=== PATIENT | male | born 1985 | race Caucasian/White ===

== ENCOUNTER 2017-07-10 10:16 | Emergency (ER) ==
[2017-07-10 10:23] VITALS: BP 125/79; TEMP 98.1; BMI 25.9
[2017-07-10] MEDS ORDERED: NORCO 10-325 PO STA (10:38)
[2017-07-10 10:59] LABS: BASOPHILS % (AUTO) 0.4 % (0.0-3.0); EOSINOPHILS # (AUTO) 0.2 K/ul (0.0-0.7); EOSINOPHILS % (AUTO) 1.4 % (0.0-7.0); HEMATOCRIT 44.2 % (42.0-52.0); HEMOGLOBIN 15.7 g/dl (14.0-18.0); IMMATURE GRANULOCYTE % (AUTO) 0.6 % (0.0-5.0); LYMPHOCYTES # (AUTO) 2.2 K/uL (0.60-3.4); LYMPHOCYTES % (AUTO) 20.1 (10.0-50.0); MEAN CORPUSCULAR HEMOGLOBIN 32.4 pg (27.0-31.0); MEAN CORPUSCULAR HGB CONC 35.5 (31.8-35.4); MEAN CORPUSCULAR VOLUME 91.1 fl (80.0-94.0); MONOCYTES # (AUTO) 0.7 K/uL (0.4-2.0); MONOCYTES % (AUTO) 6.8 (0-10); NEUTROPHILS # (AUTO) 7.7 K/ul (2.0-6.9); NEUTROPHILS % (AUTO) 70.7; PLATELET COUNT 389 10^3/uL (140-440); RED BLOOD COUNT 4.85 10^6/ul (4.70-6.10); WHITE BLOOD COUNT 10.89 K/ul (4.2-10.2)
--- NOTE | 2017-07-10 11:15 | CT ---
EXAM: CT thoracic spine without contrast. HISTORY: Back pain, and right chest/rib pain following trauma great difficulty breathing. COMPARISON: None available. TECHNIQUE: Multiple axial images of the thoracic spine were obtained without intravenous contrast. Images were reformatted in the sagittal and coronal planes. FINDINGS: The normal curvature and alignment are maintained. Vertebral body and intervertebral disc heights are normal. No fracture or subluxation is seen. No significant central canal stenosis iden tified. Adjacent soft tissues are unremarkable. IMPRESSION: No acute abnormality of the thoracic spine.
--- NOTE | 2017-07-10 11:15 | CT ---
EXAM: CT scan thorax without contrast HISTORY: Trauma COMPARISON: None. FINDINGS: Contiguous axial images obtained through the thorax without contrast utilizing 5-mm collim ation. Sagittal and coronal reconstructions were imaged reviewed.. The thoracic inlet is unremarkab le. There is no evidence of mediastinal lymphadenopathy. The heart is normal in size without perica rdial effusion. There is minimal bibasilar atelectasis. There is a displaced fracture involving the lateral aspect of the right third rib. IMPRESSION: Displaced fracture right third rib. Bibasilar atelectasis.
--- NOTE | 2017-07-10 11:26 | ED.PDOC ---
General ED Provider: Dr. JORDI KHAN Chief Complaint: Chest Wall Injury/Pain Stated Complaint: chest wall injury right sided Time Seen by Physician: 10:20 (400 pound man fell on him) Mode of Arrival: Walk-In Information Source: Patient Exam Limitations: No limitations Nursing and Triage Documentation Reviewed and Agree: Yes Trauma/Injury Complaint Exam - Trauma Complaint/Exam Location of Pain or Injury: Reports: Chest, Back Mechanism of Injury: Reports: Other (a 400 lb man fell on him) Onset/Duration: 7 days Symptoms Are: Still present Timing of Treatment: Day Initial Severity: Moderate Current Severity: Moderate Character: Reports: Aching, Pressure (is entirelt right sided and reproduceable( MAY WAS PRESENT)) Aggravating: Reports: Movement Alleviating: Reports: Rest Associated Signs and Symptoms: Denies: LOC, Confusion, Memory loss, Lethargy, Vomiting, Bleeding, Bruising, Swelling, Extremity disuse, Painful respiration, Hoarseness, Dysphagia, Hemoptysis, Significant blood loss Penetrating Injury Risk Factors: Reports: None Nexus Low Risk Criteria: No post-midline CS tender, No evidence of intoxicat. ( ALSO HAS THORACIC BACK PAIN), No focal neuro deficit, No distracting injuries Glascow Coma Scale (see protocol): 15 Skin Findings: Present: Normal findings Differential Diagnoses: Fracture, Sprain, Strain Review of Systems - Review Of Systems Constitutional: Reports: No symptoms Eyes: Reports: No symptoms Ears, Nose, Mouth, Throat: Reports: No symptoms Respiratory: Reports: No symptoms Cardiac: Reports: Chest pain GI: Reports: No symptoms : Reports: No symptoms Musculoskeletal: Reports: Back pain Skin: Reports: No symptoms Neurological: Reports: No symptoms Endocrine: Reports: No symptoms Hematologic/Lymphatic: Reports: No symptoms All Other Systems: Reviewed and Negative Past Medical History - Past Medical History Endocrine: Reports: None Cardiovascular: Reports: None Respiratory: Reports: None Hematological: Reports: None Gastrointestinal: Reports: None Genitourinary: Reports: None Neuro/Psych: Reports: None Musculoskeletal: Reports: None Cancer: Reports: None - Surgical History General Surgical History: Reports: None - Family History Family History: Reports: None - Social History Smoking Status: Current every day smoker, Heavy tobacco smoker Hx Substance Use: Yes Alcohol Screening: Occasionally Physical Exam - Physical Exam Appearance: Well-appearing, No pain distress, Well-nourished Eyes: SUMAN, EOMI, Conjunctiva clear ENT: Ears normal, Nose normal, Oropharynx normal Respiratory: Airway patent, Breath sounds clear, Breath sounds equal, Respirations nonlabored Cardiovascular: RRR, Pulses normal, No rub, No murmur GI/: Soft, Nontender, No masses, Bowel sounds normal, No Organomegaly Musculoskeletal: Normal strength, ROM intact, No edema, No calf tenderness Skin: Warm, Dry, Normal color Neurological: Sensation intact, Motor intact, Reflexes intact, Cranial nerves intact, Alert, Oriented Psychiatric: Affect appropriate, Mood appropriate Interpretation - Radiology Interpretation Radiology Interpretation By: Radiologist Radiology Results: Positive (DISPLACED RIGHT RIB FRACTURE) Critical Care Note - Critical Care Note Total Time (mins): 0 Course - Course Hematology/Chemistry: 07/10/17 10:50 Orders, Labs, Meds: Lab Review 07/10/17 10:50 WBC 10.89 H RBC 4.85 Hgb 15.7 Hct 44.2 MCV 91.1 MCH 32.4 H MCHC 35.5 H RDW Coeff of Tori 13.1 Plt Count 389 Immature Gran % (Auto) 0.6 Neut % (Auto) 70.7 Lymph % (Auto) 20.1 Emmet % (Auto) 6.8 Eos % (Auto) 1.4 Baso % (Auto) 0.4 Immature Gran # (Auto) 0.1 Neut # 7.7 H Lymph # 2.2 Emmet # 0.7 Eos # 0.2 Baso # 0.0 Orders Category Date Time Status EKG-(ED ONLY) Stat CARDIO 07/10/17 10:35 Completed CBC W/ AUTO DIFF Stat LAB 07/10/17 10:50 Completed COMPREHENSIVE METABOLIC PANEL Stat LAB 07/10/17 10:50 Received CREATINE KINASE Stat LAB 07/10/17 10:50 Received TROPONIN I Stat LAB 07/10/17 10:50 Received Hydrocodone Bit/Acetaminophen [Spencer 10-325] MEDS 07/10/17 10:38 Discontinued 1 tab PO ONCE STA CT CHEST W/O CONTRAST Stat RADS 07/10/17 10:[address] THORACIC SPINE W/O CONTRAST Stat RADS 07/10/17 10:36 Completed Medications Discontinued Medications Generic Name Dose Route Start Last Admin Trade Name Freq PRN Reason Stop Dose Admin Acetaminophen/Hydrocodone Bitart 1 tab 07/10/17 10:38 07/10/17 10:54 Spencer 10-325 PO 07/10/17 10:39 1 tab ONCE STA Administration Vital Signs: Temp Pulse Resp BP Pulse Ox 07/10/17 10:16 98.1 F 80 20 125/79 98 Departure - Departure Time of Disposition: 12:10 Disposition: HOME SELF-CARE Discharge Problem: Chest wall pain Rib fractures Qualifiers: Encounter type: initial encounter Rib fracture type: single rib Fracture type: closed Instructions: Rib Fracture (ED) Condition: Good Pt referred to PMD for follow-up: Yes Additional Instructions: Please call your Family Physician as soon as possible to schedule a follow-up appointment. Prescriptions: Hydrocodone/Acetaminophen [Spencer 10-325 Tablet] 1 each PO Q8HR #14 tablet Allergies/Adverse Reactions: Allergies No Known Allergies Allergy (Verified 07/10/17 10:25) Home Medications: Ambulatory Orders Hydrocodone/Acetaminophen [Spencer 10-325 Tablet] 1 each PO Q8HR #14 tablet Disposition Discussed With: Patient
[2017-07-10 11:31] LABS: ALANINE AMINOTRANSFERASE 45 U/L (12-78); ALBUMIN/GLOBULIN RATIO 1.29; ALKALINE PHOSPHATASE 101 U/L (50-136); ANION GAP 13.6; ASPARTATE AMINO TRANSFERASE 22 U/L (15-37); BILIRUBIN,TOTAL 0.37 mg/dL (0.00-1.20); BLOOD UREA NITROGEN 16 mg/dL (7-18); BUN/CREATININE RATIO 17.39; CARBON DIOXIDE 25 mmol/L (21-32); CHLORIDE 107 mmol/L (98-107); CREATINE KINASE 158 U/L; CREATININE 0.92 mg/dL (0.60-1.10); GLUCOSE 98 mg/dL (70-100); POTASSIUM 4.6 mmol/L (3.5-5.1); SODIUM 141 mmol/L (136-145); TOTAL PROTEIN 7.1 g/dL (6.4-8.2)
[2017-07-10 11:49] LABS: CREATINE KINASE MB 0.5 ng/ml (0.0-3.6)
== END 2017-07-10 11:58 | disposition home or self-care (01) ==
LOC: ED 10:16
DX: S22.31XA Fracture of one rib, right side, initial encounter for closed fracture (principal); W50.0XXA Accidental hit or strike by another person, initial encounter; F17.210 Nicotine dependence, cigarettes, uncomplicated
CPT/HCPCS: 36415; 80053; 82550; 82553; 84484; 85025; 93005; 93010; 99283